=== PATIENT | male | born 1990 | race Hispanic/Latino ===

== ENCOUNTER 2018-03-31 20:23 | Emergency (ER) | payer SELFPAY ==
[2018-03-31 20:51] LABS: Bilirubin Large (Negative); Blood, Urine Negative (Negative); Clarity TURBID (Clear); Glucose, Urine (Dipstick) Negative (Negative); Leukocyte Moderate (Negative); Nitrite Positive (Negative); Protein, Urine (Dipstick) 300 mg/dL (Neg-Trace); Specific Gravity, Urine 1.043 (1.002-1.036)
--- NOTE | 2018-03-31 20:51 | RAD ---
CHEST ONE VIEW: 03/31/18 HISTORY: Chest pain. FINDINGS: Monitor leads overlie the chest. Heart size is normal. The lungs are clear. IMPRESSION: No acute intrathoracic disease. POS: [facility]
[2018-03-31 20:53] LABS: Bacteria/HPF None Seen HPF (None Seen)
[2018-03-31 20:55] LABS: Pathc Cast-AUWi Flag 59.02 (0-2.49); RBC/HPF 0-3 HPF (0-3)
[2018-03-31 21:02] LABS: Amphetamine Not Detected (NotDetected); Barbiturates Screen Not Detected (NotDetected); Benzodiazepine Screen Not Detected (NotDetected); Cocaine Metabolite Screen Not Detected (NotDetected); Medtox Control Line Valid? VALID (VALID); Medtox Reader # READER 1; Methadone Not Detected (NotDetected); Methamphetamine Detected (NotDetected); Opiate Screen Not Detected (NotDetected); Oxycodone Screen Not Detected (NotDetected); Phencyclidine (PCP) Not Detected (NotDetected); THC/Cannabinoid Screen Detected (NotDetected); Tricyclic Screen Not Detected (NotDetected)
[2018-03-31 21:13] LABS: ALT (SGPT) 173 U/L (8-55); AST (SGOT) 219 U/L (5-34); Alkaline Phosphatase 196 U/L (40-150); Anion Gap 20 mmol/L (10-20); BUN (Urea Nitrogen) 12 mg/dL (8.9-20.6); Bilirubin, Total 1.9 mg/dL (0.2-1.2); Calc. Creatinine Clearance 0 mL/min (70-130); Calcium 11.6 mg/dL (7.8-10.44); Carbon Dioxide 26 mmol/L (22-29); Chloride 93 mmol/L (98-107); Estimated GFR-MDRD 52; Globulin 4.2 g/dL (2.4-3.5); Glucose 118 mg/dL (70-105); Potassium 3.3 mmol/L (3.5-5.1); Protein, Total 10.2 g/dL (6.0-8.3); Sodium 136 mmol/L (136-145)
[2018-03-31 21:14] LABS: Acetaminophen Less than 6.0 mcg/mL (10.0-30.0); Alcohol Less than 10 mg/dL (Less than 10); Salicylate Less than 8.0 mg/dL (15.0-30.0)
[2018-03-31 21:24] LABS: #Eosinphils 0.2 thou/uL (0.0-0.7); #Lymphocytes 1.5 thou/uL (1.20-3.40); #Monocytes 0.5 thou/uL (0.11-0.59); #Neutrophils 4.8 thou/uL (1.40-6.50); %Basophils 0.4 % (0.0-1.0); %Eosinophils 2.9 % (0.0-10.0); %Lymphocytes 21.8 % (21.0-51.0); %Monocytes 6.9 % (0.0-10.0); %Neutrophils 68.1 % (42.0-75.0); Hemoglobin 17.5 g/dL (14.0-18.0); MDiff Complete? YES; Macrocytosis SLIGHT = 6-15 cells (100X) (0-5/hpf); Mean Corpuscular Hemoglobin 33.3 pg (27.0-31.0); Mean Platelet Volume 9.8 fL (7.4-10.4); Platelet Count 113 thou/uL (130-400); Platelet Morphology Comment Appears Decreased; RBC Distribution Width 11.8 % (11.5-14.5); Red Blood Cell (RBC) Count 5.26 mill/uL (4.70-6.10)
[2018-03-31] MEDS ORDERED: Lorazepam 2 MG/ML VIAL ONE (21:35)
[2018-03-31] MEDS ORDERED: Folic Acid 1 MG TAB ONE (21:35)
[2018-03-31] MEDS ORDERED: cefTRIAXone\\ROCEPHIN 1 GM VIAL ONE (21:35)
== END 2018-03-31 22:30 | disposition home or self-care (01) ==
LOC: ERS 20:23
DX: F15.10 Other stimulant abuse, uncomplicated (principal); F10.10 Alcohol abuse, uncomplicated; E86.0 Dehydration; N39.0 Urinary tract infection, site not specified; I10 Essential (primary) hypertension; Y90.0 Blood alcohol level of less than 20 mg/100 ml
CPT/HCPCS: 71045; 80053; 80306; 80307; 81003; 81015; 84484; 85025; 93005; 96365; J0696; J2060

== ENCOUNTER 2018-04-01 21:36 | Emergency (ER) | payer SELFPAY ==
[2018-04-01 22:10] LABS: Hemoglobin 16.3 g/dL (14.0-18.0); Mean Corpuscular HGB CONC 34.3 g/dL (32.0-36.0); Mean Corpuscular Hemoglobin 34.6 pg (27.0-31.0); RBC Distribution Width 11.7 % (11.5-14.5); White Blood Cell (WBC) Count 6.4 thou/uL (4.8-10.8)
[2018-04-01] MEDS ORDERED: Morphine 4 MG/ML VIAL ONE (22:18)
[2018-04-01] MEDS ORDERED: Ondansetron PF 4 MG/2 ML Vial ONE (22:18)
[2018-04-01 22:27] LABS: #Eosinphils 0.5 thou/uL (0.0-0.7); #Lymphocytes 1.9 thou/uL (1.20-3.40); #Monocytes 0.5 thou/uL (0.11-0.59); #Neutrophils 3.5 thou/uL (1.40-6.50); %Basophils 0.6 % (0.0-1.0); %Lymphocytes 28.8 % (21.0-51.0); %Monocytes 7.9 % (0.0-10.0); %Neutrophils 54.6 % (42.0-75.0); Mean Platelet Volume 9.5 fL (7.4-10.4); Platelet Count 95 thou/uL (130-400); Platelet Morphology Comment Appears Decreased
[2018-04-01 22:28] LABS: ALT (SGPT) 171 U/L (8-55); AST (SGOT) 240 U/L (5-34); Albumin 5.1 g/dL (3.5-5.0); Alkaline Phosphatase 158 U/L (40-150); Anion Gap 17 mmol/L (10-20); BUN (Urea Nitrogen) 8 mg/dL (8.9-20.6); Bilirubin, Total 1.7 mg/dL (0.2-1.2); Calc. Creatinine Clearance 0 mL/min (70-130); Calcium 10.5 mg/dL (7.8-10.44); Carbon Dioxide 22 mmol/L (22-29); Chloride 99 mmol/L (98-107); Estimated GFR-MDRD 90; Globulin 3.8 g/dL (2.4-3.5); Glucose 113 mg/dL (70-105); Lipase 52 U/L (8-78); Potassium 3.2 mmol/L (3.5-5.1); Protein, Total 8.9 g/dL (6.0-8.3); Sodium 135 mmol/L (136-145)
--- NOTE | 2018-04-01 22:32 | RAD ---
CHEST ONE VIEW UPRIGHT PORTABLE: 04/01/18 HISTORY: Abdominal pain. COMPARISON: 03/31/18. FINDINGS: The heart size is within normal limits. The lungs are clear. No pneumonia, edema, pleural effusion or other acute process. IMPRESSION: No acute intrathoracic disease. Stable from yesterday's exam. POS: [facility]
--- NOTE | 2018-04-01 23:46 | ULT ---
RIGHT UPPER QUADRANT ULTRASOUND: 04/01/18 HISTORY: Upper abdominal pain. Liver is prominent in size and heterogeneous, evidence for fatty change. The ga llbladder demonstrates no evidence of gallstones, wall thickening, edema, or pericholecystic fluid. C ommon bile duct within normal limits. The visualized pancreas and right kidney are unremarkable. IMPRESSION: Coarse liver echogenicity, evidence for fatty change or other nonspecific diffuse hepatic parenchymal process. No evidence of gallstone or acute cholecystitis. No other significant acute process. POS: [facility]
== END 2018-04-02 00:30 | disposition home or self-care (01) ==
LOC: ERS 21:36
DX: R10.13 Epigastric pain (principal); R11.10 Vomiting, unspecified; K76.0 Fatty (change of) liver, not elsewhere classified
CPT/HCPCS: 36415; 71045; 76705; 80053; 83690; 84484; 85025; 93005; 96361; 96374; 96375; J2270; J2405